=== PATIENT | female | born 1995 | race Caucasian/White ===

== ENCOUNTER 2022-01-17 11:06 | Emergency (ER) | payer OTHER ==
[2022-01-17 11:16] VITALS: BP 138/84; PULSE 104; TEMP 98.1; BMI 35.2
== END 2022-01-17 13:25 | disposition home or self-care (01) ==
LOC: JER 11:06
DX: H43.393 Other vitreous opacities, bilateral (principal)
CPT/HCPCS: 70450-TC; 99284-25